=== PATIENT | female | born 1990 | race Caucasian/White ===

== ENCOUNTER 2018-02-04 11:22 | Inpatient (IN) | payer BC ==
[2018-02-04] MEDS ORDERED: Oxytocin in LR* 20 UNITS/1,000 ML BAG IVPB SCH (13:00)
[2018-02-04 13:07] LABS: Hematocrit 30 % (35-47); Hemoglobin 9.5 g/dl (12.0-16.0); Mean Corpuscular HGB Conc 32 g/dl (31-36); Mean Corpuscular Hemoglobin 22 pg (27-31); Mean Corpuscular Volume 70 fL (80-97); Mean Platelet Volume 8.6 um3 (7.4-10.4); Platelet Count 186 10^3/ul (150-450); Red Blood Count 4.22 10^6/ul (4.0-5.4); Red Cell Distribution Width 17 % (10.5-15)
--- NOTE | 2018-02-04 13:17 | HP ---
General Information - General Information Maternal Age: 27 Grav: 3 Para: 2 SAB: 0 IEA: 0 Estimated Due Date: 02/11/18 Determined By: LMP Gestational Age in Weeks and Days: 39 Weeks and 0 Days Maternal Blood Type and Rh: A Positive - Results this Serology/RPR Result: Non-Reactive Rubella Result: Immune HBsAg Result: Negative HIV Result: Negative GBS Culture Result: Negative Past Medical History Delivery History: Hx Uncomplicated Vaginal Delivery Pertinent Past Medical History: Non-Contributory Pertinent Past Surgical History: None Pertinent Family History: Non-Contributory - Antepartal Records Antepartal Records: Reviewed, Uncomplicated Review of Systems Constitutional: Comfortable CV Complaint: No Respiratory: Shortness of Breath: No Gastrointestinal: No Nausea/Vomiting, Normal Bowel Movement Genitourinary: No Dysuria, No Bleeding, No Leaking Fluid Musculoskeletal: No Complaint Neurological: No Headache, No Visual Changes Movement: Normal Exam Allergies/Adverse Reactions: Allergies No Known Allergies Allergy (Verified 05/06/14 12:22) T 98.1; BP 122/80; P 132; R 18 Lab Values - Entire Visit: Laboratory Tests 02/04/18 12:55 WBC 10.0 RBC 4.22 Hgb 9.5 L Hct 30 L MCV 70 L MCH 22 L MCHC 32 RDW 17 H Plt Count 186 MPV 8.6 - Measurements Height: 4 ft 11 in Weight: 147 lb Weight in lbs: 147 Body Mass Index (BMI): 29.7 Pre- Weight: 118 lb 15.983 oz Weight Gained This : 28.001 lbs and 0.001 ozs - Exam Abdomen: No Upper Quadrant Pain Breast: Breast Exam Deferred CVA: No CVA Tenderness Extremities: No Edema Heart: Normal Rhythm/Heart Sounds HEENT: No Significant Findings Lungs: Clear Bilaterally Rectal: Rectal Exam Deferred Reflexes: DTR 2+ Thyroid: No Thyromegaly - Abdominal Exam Abdomen Exam: Non-Tender, Fundal Height Consistent with Dates Targeted Exam Findings See L&D Outpatient Visit Provider Note for Findings: N/A Estimated Weight: 8# Cervical Exam: 3cm Effacement: 80% Station: -2 Presenting Part: Vertex Membrane Status: Intact Bleeding/Discharge: None EFM Findings - External Monitor Findings Baseline Heart Rate: 120 External Monitor Findings: Accelerations Present, No Pattern of Variable or Late Decelerations, Variability Moderate, Baseline Stable Contractions: None Assessment/Plan - Reason for Visit Reason for Visit: Elective term induction - Plan Plan: Induction - Date/Time of Admission Date of Admission: 02/04/18 Time of Admission: 13:17
[2018-02-04 13:24] LABS: ABS Basophils 0 10^3/ul (0-0.2); ABS Eosinophils 0 10^3/ul (0-0.6); ABS Lymphocytes 2.2 10^3/ul (1.0-4.8); ABS Monocytes 0.6 10^3/ul (0-0.8); ABS Neutrophils 7.1 10^3/ul (1.5-7.7); ABS Nucleated RBC 0 10^3/ul; Eosinophil % 0.3 % (0-6); Lymphocyte % 22.4 % (25-47); Nucleated Red Blood Cells % 0
[2018-02-04] MEDS ORDERED: Phenylephrine IV* 40 MCG/ML 10 ML SYRINGE ONE (14:49)
[2018-02-04] MEDS ORDERED: OBEPIDURAL* 250 ML EPIDURAL ONE (14:51)
[2018-02-04] MEDS ORDERED: Phenylephrine IV* 40 MCG/ML 10 ML SYRINGE IV PUSH PRN ×2 (16:00)
[2018-02-04] MEDS ORDERED: Sodium Citrate/Citric Acid* 15 ML UDC PO PRN (16:00)
[2018-02-04] MEDS ORDERED: OBEPIDURAL* 250 ML EPIDURAL SCH (16:00)
[2018-02-04] MEDS ORDERED: EPHEDrine (Pressors)* 50 MG/ML VIAL IV PUSH PRN ×2 (16:00)
[2018-02-04] MEDS ORDERED: Famotidine TAB* 20 MG PO PRN (16:00)
[2018-02-05] MEDS ORDERED: Witch Hazel PAD* JAR TOPICAL PRN (00:53)
[2018-02-05] MEDS ORDERED: Glycerin ADULT SUPP PR PRN (00:53)
[2018-02-05] MEDS ORDERED: Dibucaine 1% 28.35 GM TUBE PR PRN (00:53)
[2018-02-05] MEDS: Ibuprofen TAB* 600 MG PO PRN ×2 (07:32→16:33)
[2018-02-05] MEDS ORDERED: Simethicone TAB* 80 MG TAB.CHEW PO SCH (08:30)
[2018-02-05] MEDS: Docusate CAP* 100 MG PO SCH ×3 (10:03→21:17)
[2018-02-05] MEDS: Acetaminophen TAB* 325 MG PO PRN (17:31)
[2018-02-06] MEDS: Ibuprofen TAB* 600 MG PO PRN ×2 (04:16→10:00)
[2018-02-06 06:58] LABS: ABS Basophils 0.1 10^3/ul (0-0.2); ABS Eosinophils 0.2 10^3/ul (0-0.6); ABS Lymphocytes 3.6 10^3/ul (1.0-4.8); ABS Monocytes 0.9 10^3/ul (0-0.8); ABS Nucleated RBC 0 10^3/ul; Eosinophil % 1.2 % (0-6); Hematocrit 28 % (35-47); Lymphocyte % 23.1 % (25-47); Mean Corpuscular HGB Conc 32 g/dl (31-36); Mean Corpuscular Hemoglobin 23 pg (27-31); Mean Corpuscular Volume 70 fL (80-97); Mean Platelet Volume 8.4 um3 (7.4-10.4); Nucleated Red Blood Cells % 0; Platelet Count 172 10^3/ul (150-450); Red Cell Distribution Width 17 % (10.5-15); White Blood Count 15.8 10^3/ul (3.5-10.8)
[2018-02-06 08:26] VITALS: BP 113/75
[2018-02-06] MEDS: Acetaminophen TAB* 325 MG PO PRN (08:33)
[2018-02-06] MEDS: Docusate CAP* 100 MG PO SCH (08:34)
[2018-02-06] MEDS ORDERED: Ferrous Gluconate TAB* 324 MG TAB PO SCH (09:00)
== END 2018-02-06 16:28 | disposition home or self-care (01) | DRG 560 ==
LOC: MCHOBOUT 11:22 → MCHOB 12:34
PROVIDERS: ADMIT Midwife; ATTEND Obstetrics & Gynecology
PROC: 10D07Z6 Extraction of Products of Conception, Vacuum, Via Natural or Artificial Opening (ICD-10-PCS; principal; 2018-02-05)
PROC: 10907ZC Drainage of Amniotic Fluid, Therapeutic from Products of Conception, Via Natural or Artificial Opening (ICD-10-PCS; 2018-02-05)
PROC: 4A1HXCZ Monitoring of Products of Conception, Cardiac Rate, External Approach (ICD-10-PCS; 2018-02-05)
PROC: 3E033VJ Introduction of Other Hormone into Peripheral Vein, Percutaneous Approach (ICD-10-PCS; 2018-02-05)
PROC: 4A1H7CZ Monitoring of Products of Conception, Cardiac Rate, Via Natural or Artificial Opening (ICD-10-PCS; 2018-02-05)
PROC: 10H073Z Insertion of Monitoring Electrode into Products of Conception, Via Natural or Artificial Opening (ICD-10-PCS; 2018-02-05)
DX: O76 Abnormality in fetal heart rate and rhythm complicating labor and delivery (principal); O90.81 Anemia of the puerperium; Z3A.39 39 weeks gestation of pregnancy; Z37.0 Single live birth
CPT/HCPCS: 36415; 85025; 86850; 86900; 86901; A9270-GY